=== PATIENT | female | born 1970 | race Caucasian/White ===

== ENCOUNTER 2019-03-18 19:58 | Emergency (ER) | payer OTHER, SELFPAY ==
[2019-03-18 20:00] VITALS: BP 140/103; PULSE 97; RESP 16; TEMP 36.8; O2SAT 99; BMI 20.9
--- NOTE | 2019-03-18 20:46 | ED.VIS.GEN ---
History of Present Illness Chief Complaint: Foreign Body Informant: Patient, Family Onset: Today Context: Sudden Onset Timing: Continuous Quality: Unable to swallow liquids Location: Esophagus Current Severity: Mild Maximum Severity: Severe Worsened by: Attempt to drink liquids Relieved by: Nothing Associated Symptoms: Spasm chest discomfort with swallowing Narrative: Patient is a middle-aged woman with history of prior neck cancer operated on by Dr. Hoffman in 2004. She underwent chemo and radiation therapy. She has a history of esophageal obstruction secondary to food bolus 20 years ago. She states chicken was stuck. She underwent dilation [address] Doc Farmer. She states she saw him 1 week ago. She was having no difficulty until today. She ate scrambled eggs between 10 AM and 10:30 AM. She has not attempted to eat any solid foods. She is attempted to drink liquids. She has been unsuccessful. Prior similar symptoms: Yes Recent Illness/Hospitalization: No Past Medical History - Allergies and Home Meds Allergies/Adverse Reactions: Allergies No Known Allergies Allergy (Verified 03/18/19 20:01) Primary Care Physician: Can Ang DO [Primary Care Provider] - Past Medical History: None - Head neck cancer, prior esophageal obstruction with stricture Surgical History: - - Head and neck cancer Lives: Spouse/ Significant Other Smoking Status: Never smoker Alcohol: None Review of Systems General: Denies: Chills, Fever, Malaise ENT: Denies: Bilateral ear pain, Rhinorrhea, Sore throat Cardiovascular: Reports: Chest pain. Denies: Palpitations, Heart racing Respiratory: Denies: Dyspnea, Cough, Dyspnea on exertion Gastrointestinal: Denies: Abdominal pain, Nausea, Vomiting, Diarrhea, Melena, Hematochezia Musculoskeletal: Denies: Neck pain, Back pain Neurological: Denies: Weakness, Parasthesia, Numbness Hematologic: Denies: Easy bruising, Easy bleeding Allergy: Denies: Uticaria, Swelling of the mouth Physical Exam Vital Signs/Narrative: Vital Signs Temp Pulse Resp BP Pulse Ox 03/18/19 20:00 98.3 F 97 16 140/103 H 99 Inital Vital Signs reviewed: Yes General: Well nourished, Well developed, No Acute Distress, - - And had discomfort when she attempted to drink water. She was not able to drink more than 3 ounces of water. She regurgitate the water she drank. Eyes: Perrl, EOMI ENT: Moist mucous membranes, No rhinorrhea Neck: Supple, Nontender, No lymphadenopathy, No JVD, - - There is no stridor with auscultation of neck. Trachea is midline. Cardiovascular: Regular rate, Regular rhythm, No murmurs, Normal S1, Normal S2 Respiratory: No distress, CTA bilaterally, Chest nontender Abdomen: Soft, Nontender, Nondistended, Normal bowel sounds Rectal: Deferred Neurological: Alert, Oriented x3, Cranial nerves II-XII grossly intact, Normal Strength, Normal Sensation Psychological: Normal affect, Normal Mood Diagnostic/Tx/Re-eval - Medical Decision Making Since patient unable to drink fluids Dr. Adelaide Alonso was contacted to perform EGD to alleviate esophageal obstruction secondary to scrambled eggs. Patient was consented for deep sedation. She denied allergy to soy products or egg products. She was explained risk benefits using propofol. Her questions were answered to satisfaction. Spoke with Dr. Pérez regarding patient since he is covering for Dr. Doc Farmer. He was informed that she will need dilation since there is narrowing at the GE junction, 30 cm. Procedures Procedure(s): Deep sedation for EGD to alleviate esophageal obstruction secondary to food bolus. Start time 2128. Completion of deep sedation 2138. Patient received a total of 180 mg of propofol. She is under my direct supervision and guidance. EGD performed by Dr. Alonso. Patient had no complications and tolerated procedure without incident. There was no hemodynamic instability or hypoxia. There was no evidence of aspiration. ED Disposition - Plan for ED Patient: Disposition: Home or Assisted Living Diagnosis: Esophageal obstruction due to food impaction, Esophageal stricture Instructions: ED Foreign Body Esophageal Rslv Referrals: Can Ang DO [Primary Care Provider] - Doc Farmer MD [NON-STAFF] - 3-5 Days Additional Instructions: No solid foods. Recommend protein shakes, Ensure and pur?ed food. There was narrowing found and you will require dilation by Dr. Farmer. Contact his office on Wednesday.
--- NOTE | 2019-03-18 21:02 | PCM.CONS.GEN ---
Reason for Consult Date of Consultation: 03/18/19 History of Present Illness: The patient is a 49 year old F presented due to esophageal obstruction. Patient states she had some eggs and waffles this morning about 1030 she ate a plate waffle and a couple bites of eggs and couple bites of waffles and cannot eat anymore. Patient does have a past medical history for throat cancer in 2004 which she did receive chemo and radiation for. Patient also has a history of previous food impaction in her esophagus?chicken, patient is unsure when this occurred possibly for years ago or in 2011 but she states she did have a dilation shortly after that. Patient tried to drink water but was unable to swallow it. Patient does not make much saliva since her throat cancer and treatment. 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 Lives: Spouse/ Significant Other Smoking Status: Never smoker Alcohol: None Review of Systems Constitutional: Reports: Anorexia HEENT: Reports: Difficulty Swallowing Cardiovascular: Reports: Chest Pain - Physical Exam General: Alert, Oriented x3, Cooperative, No apparent distress HEENT: Atraumatic Lungs: Normal air movement Cardiovascular: Regular rate Abdomen: Soft, Non Tender, Non-Distended Extremities: No clubbing, No cyanosis, No edema Neurological: Cranial nerves II-XII grossly intact Psych/Mental Status: Normal Affect Vital Signs Temp Pulse Resp BP Pulse Ox 98.3 F 97 16 140/103 H 99 03/18/19 20:00 03/18/19 20:00 03/18/19 20:00 03/18/19 20:00 03/18/19 20:00 Oxygen Delivery Method Room Air Weight: 130 lb Body Mass Index (BMI) 20.9 Assessment/Plan 49-year-old female with esophageal obstruction, past medical history for throat cancer I have offered the patient EGD for removal of foreign body I have explained the risks/benefits of the procedure and described the procedure. I have discussed the risks with the patient, including but not limited to: infection, bleeding, perforation of the GI tract requiring emergency surgery/may require transfer to a tertiary care facility, inability to complete the procedure-requiring transfer to another facility with GI due to either inability to remove the foreign body or difficulty getting the scope and due to the previous throat cancer, complications of anesthesia, etc. - the patient understands and agrees to proceed. I have answered all the patient's questions to the patient's satisfaction and the patient has no further questions. Petrona Alonso M.D. Pager: [phone] [facility] [address] [place] [address] [address] [place] [address] Office: [phone]
--- NOTE | 2019-03-18 21:06 | CON.PCM_ITS ---
Reason for Consult Date of Consultation: 03/18/19 History of Present Illness: The patient is a 49 year old F presented due to esophageal obstruction. Patient states she had some eggs and waffles this morning about 1030 she ate a plate waffle and a couple bites of eggs and couple bites of waffles and cannot eat anymore. Patient does have a past medical history for throat cancer in 2004 which she did receive chemo and radiation for. Patient also has a history of previous food impaction in her esophagus?chicken, patient is unsure when this occurred possibly for years ago or in 2011 but she states she did have a dilation shortly after that. Patient tried to drink water but was unable to swallow it. Patient does not make much saliva since her throat cancer and treatment. 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 Lives: Spouse/ Significant Other Smoking Status: Never smoker Alcohol: None Review of Systems Constitutional: Reports: Anorexia HEENT: Reports: Difficulty Swallowing Cardiovascular: Reports: Chest Pain - Physical Exam General: Alert, Oriented x3, Cooperative, No apparent distress HEENT: Atraumatic Lungs: Normal air movement Cardiovascular: Regular rate Abdomen: Soft, Non Tender, Non-Distended Extremities: No clubbing, No cyanosis, No edema Neurological: Cranial nerves II-XII grossly intact Psych/Mental Status: Normal Affect Vital Signs Temp Pulse Resp BP Pulse Ox 98.3 F 97 16 140/103 H 99 03/18/19 20:00 03/18/19 20:00 03/18/19 20:00 03/18/19 20:00 03/18/19 20:00 Oxygen Delivery Method Room Air Weight: 130 lb Body Mass Index (BMI) 20.9 Assessment/Plan 49-year-old female with esophageal obstruction, past medical history for throat cancer I have offered the patient EGD for removal of foreign body I have explained the risks/benefits of the procedure and described the procedure. I have discussed the risks with the patient, including but not limited to: infection, bleeding, perforation of the GI tract requiring emergency surgery/may require transfer to a tertiary care facility, inability to complete the procedure-requiring transfer to another facility with GI due to either inability to remove the foreign body or difficulty getting the scope and due to the previous throat cancer, complications of anesthesia, etc. - the patient understands and agrees to proceed. I have answered all the patient's questions to the patient's satisfaction and the patient has no further questions. Petrona Alonso M.D. Pager: [phone] [facility] [address] [place] [address] [address] [place] [address] Office: [phone]
[2019-03-18] MEDS: Propofol 200 MG/20 ML Vial IV BOLUS (21:29)
[2019-03-18 21:30] VITALS: BP 158/99; PULSE 101; PULSE 105; PULSE 89; PULSE 91; PULSE 98; RESP 12; RESP 18; RESP 23; O2SAT 100; O2SAT 99
[2019-03-18 21:35] VITALS: BP 164/107; PULSE 99; RESP 19; O2SAT 100
[2019-03-18 21:40] VITALS: BP 118/82; BP 96/70; PULSE 85; PULSE 94; RESP 22; RESP 24; O2SAT 100; O2SAT 99
--- NOTE | 2019-03-18 21:52 | OP.ENDO_ITS ---
03/18/2019 Can Ang [address] [place] [address] Re : Upper GI endoscopy procedure for Afua Britt Dear Dr. Ang This procedure was performed on Monday, March 18, 2019. My impressions and recommendations are as follows: Impressions : - Esophageal stenosis. - Normal stomach. - No specimens collected. Recommendations : - Discharge patient to home. - Full liquid diet. - Continue present medications. My findings are described in the full procedure note, which is enclosed. If I can be of further assistance, please feel free to contact me at Doctor phone number(s): , Work: . Sincerely, MD Petrona Spencer MD 03/18/2019 9:52:11 PM This report has been signed electronically.
[2019-03-18 22:00] VITALS: BP 141/87
== END 2019-03-18 22:03 | disposition home or self-care (01) ==
PROVIDERS: Surgery; Emergency Provider Emergency Medicine; Family Provider Preventive Medicine Occupational Medicine; PCP Preventive Medicine Occupational Medicine
PROC: 0DJ08ZZ Inspection of Upper Intestinal Tract, Via Natural or Artificial Opening Endoscopic (ICD-10-PCS; CPT 43235; principal; 2019-03-18 21:15)
DX: T18.128A Food in esophagus causing other injury, initial encounter (principal); X58.XXXA Exposure to other specified factors, initial encounter; Y93.89 Activity, other specified; Y92.9 Unspecified place or not applicable; Z85.819 Personal history of malignant neoplasm of unspecified site of lip, oral cavity, and pharynx; Z79.899 Other long term (current) drug therapy
CPT/HCPCS: 43247; 99284; J7030; A4216